=== PATIENT | female | born 1970 | race Caucasian/White ===

== ENCOUNTER 2021-04-02 07:44 | Day surgery (SDC) | payer OTHER ==
[2021-03-29 14:07] VITALS: BMI 22.9
[2021-04-02] MEDS ORDERED: PROPOFOL 20 ML ONE ×4 (08:01)
[2021-04-02] MEDS ORDERED: LIDOCAINE HCL/PF 2% SDV 5ML VIAL ONE (08:01)
[2021-04-02 09:16] VITALS: TEMP 97.8
[2021-04-02 09:34] VITALS: BP 104/75; PULSE 61
== END 2021-04-02 09:47 | disposition home or self-care (01) ==
LOC: FASU-ENDO 07:44
PROVIDERS: ATTEND Internal Medicine Gastroenterology
PROC: 0DB68ZX Excision of Stomach, Via Natural or Artificial Opening Endoscopic, Diagnostic (ICD-10-PCS; 2021-04-02)
PROC: 0DB98ZX Excision of Duodenum, Via Natural or Artificial Opening Endoscopic, Diagnostic (ICD-10-PCS; principal; 2021-04-02 08:49)
DX: K29.50 Unspecified chronic gastritis without bleeding (principal); R10.13 Epigastric pain
CPT/HCPCS: 84703; 88305-TC; 88342-TC